=== PATIENT | female | born 1940 | race Caucasian/White ===

== ENCOUNTER 2016-12-07 13:02 | Day surgery (SDC) | payer MEDICARE ==
--- NOTE | 2016-12-08 11:40 | Operative Note ---
DATE OF SURGERY: 12/07/2016 PREOPERATIVE DIAGNOSIS: Urge urinary incontinence. POSTOPERATIVE DIAGNOSIS: Urge urinary incontinence. OPERATION: Cystoscopy. Anesthesia: Local. Indication: A 76-year-old female with urinary incontinence. She has a prior history of urethral sling surgery. She presents today for further investigation. PROCEDURE: Preop informed consent was obtained. Antibiotics were given. The patient was brought to the procedure room at [facility], placed in frog leg position with genitalia prepped and draped sterilely. Flexible cystoscopy was performed. The urethra appears unremarkable. The bladder was entered and urine in the bladder appears remarkably cloudy and it was very difficult to visualize the bladder itself. The bladder was then irrigated out several times with sterile water and some of that urine was initially sent for culture and cytology via the cystoscope. Once the bladder had been cleared out sufficiently, I was able to examine the mucosa. I did not see any evidence of tumor, foreign body, or abnormality; however, both ureteral orifices were visualized and unremarkable in appearance and location. The scope was then retroflexed. No further abnormality was seen at the bladder neck and the scope was then withdrawn. The patient tolerated this quite well. PLAN: We will follow and review the urine culture and cytology results sent today and she will come for discussion in 1-2 [facility]. We will need to move ahead with further treatment based on the results of culture and cytology. Valeriy Roberto M.D. CC: Dr. Zari BRICENO
== END 2016-12-07 14:00 | disposition home or self-care (01) ==
LOC: HOP 13:02
PROVIDERS: ATTEND Urology
DX: N32.81 Overactive bladder (principal)

== ENCOUNTER 2019-01-28 07:04 | Emergency (ER) | payer MEDICARE ==
[2019-01-28] MEDS ORDERED: SODIUM CHLORIDE 0.9% 500 ML IV ONE (07:26)
--- NOTE | 2019-01-28 07:32 | Emergency Department Record ---
History of Present Illness - General Chief Complaint: Abdominal Pain Stated Complaint: ABD PAIN Time Seen by Provider: 01/28/19 07:23 Source: Patient, RN notes reviewed Mode of Arrival: Wheelchair - History of Present Illness Initial Comments: pain intermittent for 2 weeks and pain is located in the bilateral lower abdominal area and nausea and no vomiting and no blood in stool or urine and PSH appendectomy GB remova and total hysterectomy. PMH atrial fibrillation and on coumadin. Primary Dr Shea. Complaint: Abdominal pain Onset/Timin -: Week(s) Location: LLQ, RLQ Radiation: None Migration to: No migration Severity: Moderate Severity scale (1-10): 8 Quality: Cramping, Sharp, Stabbing Consistency: Constant Improves With: Nothing Worsens With: Nothing Associated Symptoms: Denies other symptoms - Related Data Patient : No Allergies Allergy/AdvReac Type Severity Reaction Status Date / Time apixaban [From Eliquis] Allergy Intermediate RASH Unverified 01/10/19 13:39 Travel Screening - Travel/Exposure Within Last 30 Days Have you traveled within the last 30 days?: No Review of Systems Reviewed: No additional complaints except as noted below Constitutional: Reports: As per HPI. Denies: Chills, Fever, Malaise, Night sw eats, Weakness, Weight change Eyes: Reports: As per HPI. Denies: Eye discharge, Eye pain, Photophobia, Vision change ENT: Reports: As per HPI. Denies: Congestion, Dental pain, Ear pain, Epistaxis, Hearing loss, Throat pain Respiratory: Reports: As per HPI. Denies: Cough, Dyspnea, Hemoptysis, Stridor, Wheezes Cardiovascular: Reports: As per HPI. Denies: Arrhythmia, Chest pain, Dyspnea on exertion, Edema, Murmurs, Orthopnea, Palpitations, Paroxysmal nocturnal dyspnea, Rheumatic Fever, Syncope Endocrine: Reports: As per HPI. Denies: Fatigue, Heat or cold intolerance, Polydipsia, Polyuria Gastrointestinal: Reports: As per HPI, Abdominal pain, Nausea. Denies: Constipation, Diarrhea, Hematemesis, Hematochezia, Melena, Vomiting Genitourinary: Reports: As per HPI. Denies: Abnormal menses, Discharge, Dyspareunia, Dysuria, Frequency, Hematuria, Incontinence, Retention, Urgency Musculoskeletal: Reports: As per HPI. Denies: Arthralgia, Back pain, Gout, Joint swelling, Myalgia, Neck pain Skin: Reports: As per HPI. Denies: Bruising, Change in color, Change in hair /nails, Lesions, Pruritus, Rash Neurological: Reports: As per HPI. Denies: Abnormal gait, Confusion, Headache, Numbness, Paresthesias, Seizure, Tingling, Tremors, Vertigo, Weakness Psychiatric: Reports: As per HPI. Denies: Anxiety, Auditory hallucinations, Depression, Homicidal thoughts, Suicidal thoughts, Visual hallucinations Hematological/Lymphatic: Reports: As per HPI. Denies: Anemia, Blood Clots, Easy bleeding, Easy bruising, Swollen glands Past Medical History - SOCIAL HISTORY Smoking Status: Never smoker Alcohol Use: None Drug Use: None - RESPIRATORY Hx Respiratory Disorders: No - CARDIOVASCULAR Hx Cardio Disorders: Yes Hx Irregular Heartbeat: Yes (afib) - NEURO Hx Neuro Disorders: No - GI Hx GI Disorders: No - Hx Genitourinary Disorders: No - ENDOCRINE Hx Endocrine Disorders: Yes Hx Diabetes: Yes - MUSCULOSKELETAL Hx Musculoskeletal Disorders: No - PSYCH Hx Psych Problems: No - HEMATOLOGY/ONCOLOGY Hx Hematology/Oncology Disorders: No Family Medical History Any Significant Family History?: No Physical Exam - General General Appearance: Alert, Oriented x3, Cooperative, No acute distress - Head Head exam: Normal inspection - Eye Eye exam: Normal appearance, PERRL Pupils: Normal accommodation - ENT ENT exam: Normal exam, Mucous membranes moist, Normal external ear exam, Normal orophraynx, TM's normal bilaterally Ear exam: Normal external inspection. negative: External canal tenderness Nasal Exam: Normal inspection. negative: Discharge, Sinus tenderness Mouth exam: Normal external inspection, Tongue normal Teeth exam: Normal inspection. negative: Dental caries Throat exam: Normal inspection. negative: Tonsillar erythema, Tonsillar exudate - Neck Neck exam: Normal inspection, Full ROM. negative: Tenderness - Respiratory Respiratory exam: Normal lung sounds bilaterally. negative: Respiratory distress - Cardiovascular Cardiovascular Exam: Regular rate, Normal rhythm, Normal heart sounds - GI/Abdominal GI/Abdominal exam: Soft, Normal bowel sounds, Tenderness (right lower quad pain but has been on both sides on and off. ). negative: Distended, Pulsatile mass, Rebound, Rigid - Rectal Rectal exam: Deferred - exam: Deferred - Extremities Extremities exam: Normal inspection, Full ROM, Normal capillary refill. negative: Tenderness - Back Back exam: Reports: Normal inspection, Full ROM. Denies: Muscle spasm, Rash noted, Tenderness - Neurological Neurological exam: Alert, Normal gait, Oriented X3, Reflexes normal - Psychiatric Psychiatric exam: Normal affect, Normal mood - Skin Skin exam: Dry, Intact, Normal color, Warm Course Vital Signs 01/28/19 07:07 Temperature 98.5 F Pulse Rate 115 H Respiratory 20 Rate Blood Pressure 116/67 Pulse Ox 96 - Reevaluation(s) Reevaluation #1: discussed case with Dr Dueñas and will transfer to [facility] 01/28/19 10:26 Medical Decision Making - Data Complexity MDM Data: Labs Ordered and/or Reviewed (INR 7.5, urine positive for infection), X-Ray Ordered and/or Reviewed (bilateral hydronephrosis,with bladder thickening and inflamation, left renal artery stenosis 60-70% with a chronic dissection, diverticulosi) - Lab Data Result diagrams: 01/28/19 07:20 01/28/19 07:20 Disposition Clinical Impression: Cystitis, Renal artery stenosis, Renal artery dissection, Coagulopathy Hydronephrosis Qualifiers: Hydronephrosis type: unspecified Qualified Code(s): N13.30 - Unspecified hydronephrosis Abdominal pain Qualifiers: Abdominal location: left lower quadrant Qualified Code(s): R10.32 - Left lower quadrant pain Disposition: Acute Care Hospital Transfer Condition: (2) Stable Forms: Patient Portal Access Time of Disposition: 10:27 Quality - Quality Measures Quality Measures: N/A - Blood Pressure Screening Does Patient Have Any of the Following: No, Active Dx of HTN Blood Pressure Classification: Normal BP Reading Systolic Measurement: 116 Diastolic Measurement: 67 Screening for High Blood Pressure: Patient Exclusion, Hx of HTN [[id number]]
[2019-01-28 07:40] LABS: ABSOLUTE NEUTROPHIL COUNT 10.03; HEMATOCRIT 41.9 % (35.0-47.0); HEMOGLOBIN 13.4 gm/dl (11.6-16.0); MEAN CELL VOLUME 89.7 fl (81-97); MEAN CORPUSCULAR HEMOGLOBIN 28.7 pg (27-33); MEAN PLATELET VOLUME 10.5 fl (7.4-10.4); PLATELET COUNT 510 K/uL (130-400); RED BLOOD COUNT 4.67 M/uL (3.80-5.40); RED CELL DISTRIBUTION WIDTH 13.6 % (11.5-14.5); WHITE BLOOD COUNT W/O DIFF 12.3 K/uL (4.2-12.2)
[2019-01-28 07:52] LABS: BLOOD UREA NITROGEN 15 mg/dL (8-23); CREATININE 0.9 mg/dL (0.5-0.9); EST GLOMERULAR FILTRATION RATE > 60 mL/min
[2019-01-28 07:53] LABS: LIPASE 32 U/L (13-60); TOTAL PROTEIN 7.3 g/dL (6.6-8.7)
[2019-01-28 07:57] LABS: ALBUMIN 3.5 g/dL (4.0-5.0); ALKALINE PHOSPHATASE 90 U/L (35-104); ALT/SGPT 12 U/L (<33); AST/SGOT 11 U/L (10.0-35.0)
[2019-01-28 07:58] LABS: BILIRUBIN,DIRECT < 0.2 mg/dL (0-0.3)
[2019-01-28 08:30] LABS: INR 7.5; PROTHROMBIN TIME (PATIENT) 70.2 SECONDS (9.5-12.1)
[2019-01-28 08:53] LABS: URINE APPEARANCE CLEAR; URINE BILIRUBIN NEGATIVE (NEGATIVE); URINE BLOOD MODERATE (NEGATIVE); URINE COLOR YELLOW; URINE KETONE 15 mg/dL (NEGATIVE); URINE LEUKOCYTE ESTERASE MODERATE (NEGATIVE); URINE NITRITE POSITIVE (NEGATIVE); URINE UROBILINOGEN 0.2 E.U./dL (0.20 - 1.00)
[2019-01-28] MEDS ORDERED: CEFTRIAXONE SODIUM 2 GM in 0.9 % SODIUM CHLORIDE 100ML 100 ML IVPB ONE (10:14)
[2019-01-28] MEDS ORDERED: 0.9 % SODIUM CHLORIDE 1000ML 1,000 ML IV ONE (10:47)
[2019-01-28] MEDS ORDERED: DILTIAZEM 25MG/5ML VIAL IV ONE (10:47)
--- NOTE | 2019-01-29 22:54 | CT ANGIOGRAM REPORT ---
EXAM: CT ANGIOGRAM ABDOMEN/PELVIS CTA HISTORY: ABDOMINAL PAIN. POSSIBLE MESENTERIC ISCHEMIA. TECHNIQUE: Routine CT angiogram of the abdomen and pelvis is performed with 90 mL of Omnipaque-350 utilized. Maximum-intensity projection reformatted images are generated in the sagittal and coronal planes. 3D volume-rendered images are also obtained. COMPARISON: None. FINDINGS: Opacification of the systemic arteries is satisfactory for interpretation. There is mild diffuse atherosclerosis of the abdominal aorta and iliac arteries without associated aneurysmal dilatation, dissection, nor high-grade stenosis. Aortic diameters are as follows: Distal descendin.2 cm. Hiatus: 2.2 cm. Juxtarenal: 1.8 cm. Mid infrarenal: 1.5 cm. Distal infrarenal: 1.3 cm Celiac artery: Minor plaque at its origin causes less than 20% stenosis. Otherwise, widely patent, normal in caliber and without dissection. Its proximal branches are patent. There is mild to moderate atherosclerotic calcification of the mid to distal splenic artery. Superior mesenteric artery: There is atherosclerotic calcification along the right margin of its origin causing approximately 20-30% stenosis. Otherwise, widely patent, as are its proximal branches. Inferior mesenteric artery: Patent. Right renal artery: There is a single right renal artery. There is calcified plaque along the anterior margin of the proximal right renal artery causing mild segmental stenosis. No high-grade stenosis nor thrombosis. Left renal artery: There is a single left renal artery. There is calcified plaque at its origin causing approximately 60-70% stenosis. A short segment of dissection in this region is possible, likely chronic. Atherosclerosis of the common iliac arteries causes mild stenosis. The external iliac arteries are widely patent, as are the common femoral arteries. The common femoral artery bifurcations are patent. There is mild atherosclerosis of the proximal aspects of the internal iliac arteries. There are patchy opacities within the lung bases consistent with atelectasis or less likely infiltrate. The heart is mildly enlarged. No pleural or pericardial effusion. Evaluation of the solid viscera is limited due to imaging during early phase of enhancement. With this in mind, no suspicious focal abnormality is demonstrated within the liver, spleen, pancreas, nor adrenal glands. A calcified granuloma is noted within the lateral aspect of the liver dome. The gallbladder is surgically absent. No biliary ductal dilatation is seen. The renal cortices enhance symmetrically. No definite renal mass nor calculus. There is moderate hydroureteronephrosis bilaterally down to the level of the vesicoureteral junctions. There is associated moderate urinary bladder wall thickening and mild perivesical fat stranding. No definite focal bladder mass nor definite focal obstructing ureteral mass/calculus. No intraabdominal nor retroperitoneal lymphadenopathy. The uterus is surgically absent. No pelvic mass or adenopathy. No gross bowel dilatation nor bowel wall thickening. By history, the appendix is surgically absent. There is diverticulosis of the left colon without evidence of acute diverticulitis. The wall of the distal rectum appears mildly prominent in thickness, likely due to incomplete distention. No extraluminal air nor ascites. There are two fat-filled ventral wall hernias. That in the midline abdomen above the level of the umbilicus measures 5.7 x 2.5 cm. The other is located in the left periumbilical region and measures 6.5 x 5 cm. These appear uncomplicated. No lytic or blastic bone lesion. IMPRESSION: 1. MILD DIFFUSE ATHEROSCLEROSIS. THERE IS NO EVIDENCE OF ANEURYSM NOR HIGH- GRADE STENOSIS INVOLVING THE ABDOMINAL AORTA NOR ILIAC ARTERIES. 2. NO EVIDENCE OF CLINICALLY SIGNIFICANT STENOSIS INVOLVING THE MESENTERIC ARTERIES NOR CELIAC ARTERIES. 3. SHORT SEGMENT OF STENOSIS INVOLVING THE PROXIMAL LEFT RENAL ARTERY MEASURING APPROXIMATELY 60-70%. A SHORT SECTION OF CHRONIC DISSECTION AT THIS LEVEL IS POSSIBLE. 4. MODERATE WALL THICKENING OF THE URINARY BLADDER WITH MILD TO MODERATE PERIVESICAL FAT STRANDING. THIS IS SUSPICIOUS FOR CYSTITIS. THERE IS ASSOCIATED MODERATE TO SEVERE BILATERAL HYDROURETERONEPHROSIS DOWN TO THE LEVEL OF THE VESICOURETERAL JUNCTIONS. 5. COLONIC DIVERTICULOSIS WITHOUT EVIDENCE OF DIVERTICULITIS. 6. UNCOMPLICATED VENTRAL WALL HERNIAS. 7. STATUS POST CHOLECYSTECTOMY, APPENDECTOMY, AND HYSTERECTOMY. JOB NUMBER: [id number] [facility]
== END 2019-01-28 13:08 | disposition short-term general hospital (02) ==
LOC: ER 07:04
DX: I77.73 Dissection of renal artery (principal); I70.1 Atherosclerosis of renal artery; D68.9 Coagulation defect, unspecified; R00.0 Tachycardia, unspecified; K57.90 Diverticulosis of intestine, part unspecified, without perforation or abscess without bleeding; N30.01 Acute cystitis with hematuria; R10.32 Left lower quadrant pain; N13.30 Unspecified hydronephrosis; R11.0 Nausea; I10 Essential (primary) hypertension; I48.91 Unspecified atrial fibrillation
CPT/HCPCS: 74174; 80048; 80076; 81003; 83690; 85027; 85610; 93005; 93010; 96374; 96375; 99285

== ENCOUNTER 2019-09-19 10:37 | Emergency (ER) | payer MEDICARE ==
[2019-09-19] MEDS ORDERED: 0.9 % SODIUM CHLORIDE 1,000 ML BAG IV ONE (10:42)
--- NOTE | 2019-09-19 10:51 | Emergency Department Record ---
History of Present Illness - General Chief Complaint: Fall Injury Stated Complaint: FALL Time Seen by Provider: 09/19/19 10:40 Source: Patient, EMS Mode of Arrival: EMS - History of Present Illness Initial Comments: patient fell at the local school with hitting her low back and also hit her head and noLOC and no vomiting or headache but she is on coumadin for atrial fib. No chest pain or thoracic back pain or c spine pain or abdominal pain. She has severe lumbar spine pain and her pelvis hurts to rock her pelvis, She is moving her legs and arms without pain.PMH neurogenic bladder and has a pardo snf Urologist Dr Stout. DM type two 2, atrial fib, MD Complaint: Fall Onset/Timin -: Minutes(s) Fall From: Standing When Fall Occurred: Just prior to arrival Fall Witnessed: Yes, by bystander Loss of Consciousness: None Prolonged Down Time?: No Symptoms Prior to Fall: None Location: Head, Back Severity scale (1-10): >10 Quality: Aching Associated Symptoms: Denies - Josh Coma Scale Eye Response: (4) Open spontaneously Motor Response: (6) Obeys commands Verbal Response: (5) Oriented Citra Total: 15 - Related Data Allergies Allergy/AdvReac Type Severity Reaction Status Date / Time No Known Drug Allergies Allergy Verified 09/19/19 11:13 Travel/Exposure Screening - Travel/Exposure Within Last 30 Days Have you traveled within the last 30 days?: No Review of Systems Reviewed: No additional complaints except as noted below Constitutional: Reports: As per HPI. Denies: Chills, Fever, Malaise, Night sweats, Weakness, Weight change Eyes: Reports: As per HPI. Denies: Eye discharge, Eye pain, Photophobia, Vision change ENT: Reports: As per HPI. Denies: Congestion, Dental pain, Ear pain, Epistaxis, Hearing loss, Throat pain Respiratory: Reports: As per HPI. Denies: Cough, Dyspnea, Hemoptysis, Stridor, Wheezes Cardiovascular: Reports: As per HPI. Denies: Arrhythmia, Chest pain, Dyspnea on exertion, Edema, Murmurs, Orthopnea, Palpitations, Paroxysmal nocturnal dyspnea, Rheumatic Fever, Syncope Endocrine: Reports: As per HPI. Denies: Fatigue, Heat or cold intolerance, Polydipsia, Polyuria Gastrointestinal: Reports: As per HPI. Denies: Abdominal pain, Constipation, Diarrhea, Hematemesis, Hematochezia, Melena, Nausea, Vomiting Genitourinary: Reports: As per HPI. Denies: Abnormal menses, Discharge, Dyspareunia, Dysuria, Frequency, Hematuria, Incontinence, Retention, Urgency Musculoskeletal: Reports: As per HPI, Back pain. Denies: Arthralgia, Gout, Joint swelling, Myalgia, Neck pain Skin: Reports: As per HPI. Denies: Bruising, Change in color, Change in hair/nails, Lesions, Pruritus, Rash Neurological: Reports: As per HPI. Denies: Abnormal gait, Confusion, Headache, Numbness, Paresthesias, Seizure, Tingling, Tremors, Vertigo, Weakness Psychiatric: Reports: As per HPI. Denies: Anxiety, Auditory hallucinations, Depression, Homicidal thoughts, Suicidal thoughts, Visual hallucinations Hematological/Lymphatic: Reports: As per HPI. Denies: Anemia, Blood Clots, Easy bleeding, Easy bruising, Swollen glands Past Medical History - SOCIAL HISTORY Smoking Status: Never smoker Alcohol Use: None Drug Use: None - RESPIRATORY Hx Respiratory Disorders: No - CARDIOVASCULAR Hx Cardio Disorders: Yes Hx Irregular Heartbeat: Yes (afib) - NEURO Hx Neuro Disorders: No - GI Hx GI Disorders: No - Hx Genitourinary Disorders: No - ENDOCRINE Hx Endocrine Disorders: Yes Hx Diabetes: Yes - MUSCULOSKELETAL Hx Musculoskeletal Disorders: No - PSYCH Hx Psych Problems: No - HEMATOLOGY/ONCOLOGY Hx Hematology/Oncology Disorders: No Family Medical History Any Significant Family History?: No Physical Exam - General General Appearance: Alert, Oriented x3, Cooperative, No acute distress - Head Head exam: Normal inspection - Eye Eye exam: Normal appearance, PERRL Pupils: Normal accommodation - ENT ENT exam: Normal exam, Mucous membranes moist, Normal external ear exam, Normal orophraynx, TM's normal bilaterally Ear exam: Normal external inspection. negative: External canal tenderness Nasal Exam: Normal inspection. negative: Discharge, Sinus tenderness Mouth exam: Normal external inspection, Tongue normal Teeth exam: Normal inspection. negative: Dental caries Throat exam: Normal inspection. negative: Tonsillar erythema, Tonsillar exudate - Neck Neck exam: Normal inspection, Full ROM. negative: Tenderness - Respiratory Respiratory exam: Normal lung sounds bilaterally. negative: Respiratory distress - Cardiovascular Cardiovascular Exam: Regular rate, Normal rhythm, Normal heart sounds - GI/Abdominal GI/Abdominal exam: Soft, Normal bowel sounds, Other (pain rocking pelvis and palpating the lumbar spine). negative: Tenderness - Rectal Rectal exam: Deferred - exam: Deferred - Extremities Extremities exam: Normal inspection, Full ROM, Normal capillary refill. negative: Tenderness - Back Back exam: Reports: Normal inspection, Full ROM. Denies: Muscle spasm, Rash noted, Tenderness - Neurological Neurological exam: Alert, Normal gait, Oriented X3, Reflexes normal - Psychiatric Psychiatric exam: Normal affect, Normal mood - Skin Skin exam: Dry, Intact, Normal color, Warm Course - Reevaluation(s) Reevaluation #1: Discussed case with Dr Ra julio and Dr. Brito and Shanon [facility] and they requested vit K to reverse coumadin 09/19/19 12:36 09/19/19 13:01 Reevaluation #2: patient had an episode where she became unresponsive and not breathing for about 3 min and pulse ox remained in the 90% and she was bradycardic 46 and she had no siezure activity the was in the room and she coughed and became unresponsive and she wake up and vomited and stated she had back pain. Patient seemed sedated so gave narcan 0.4 mg and she became much more responsive and more painful. Her vitamin K was just started and that was stopped. IV normal saline fluid bolus 500 ml given and her BP was good through out the episode. 09/19/19 13:38 Reevaluation #3: reordered CT head and CTA of chest and abd 09/19/19 13:47 Reevaluation #4: patient went bradycardic and maintained her BP through the episode and now is talking but nauseated after the narcan given and she has much more back pain. 09/19/19 13:50 Reevaluation #5: IV contrast went SQ in the right anticubital area and they were unable to do the CTA and because her respiratory status was good canciled the CTA and just did a CT chest and ABD and if she needs a CTA that could be done at [facility] and discussed the case with DR Brito at [facility] ED. Repeat CT of head negative, CT of chest and abd pending 09/19/19 14:53 Medical Decision Making - Data Complexity MDM Data: Labs Ordered and/or Reviewed (inr 2.7, hg 12.8, bun 20, 0.8), X-Ray Ordered and/or Reviewed (CT head neg adn Cspine neg T12 compression fracture with extension into the right pedicle and right Lamina) - Lab Data Result diagrams: 09/19/19 10:56 09/19/19 10:56 Disposition Clinical Impression: Lumbar pain, Pelvic pain Fracture of thoracic spine Qualifiers: Encounter type: initial encounter Thoracic vertebra fracture level: T12 Fract ure type: closed Fracture morphology: other fracture Qualified Code(s): S22.088A - Other fracture of T11-T12 vertebra, initial encounter for closed fracture Syncope Qualifiers: Syncope type: vasovagal syncope Qualified Code(s): R55 - Syncope and collapse Disposition: Acute Care Hospital Transfer Condition: (2) Stable Forms: Patient Portal Access Time of Disposition: 13:13 Quality - Quality Measures Quality Measures: N/A - Blood Pressure Screening Does Patient Have Any of the Following: No, Active Dx of HTN Blood Pressure Classification: Hypertensive Reading Systolic Measurement: 140 Diastolic Measurement: 72 Screening for High Blood Pressure: Patient Exclusion, Hx of HTN [G9744]
[2019-09-19 11:11] LABS: ABSOLUTE NEUTROPHIL COUNT 5.74; BASO % 0.4 % (0-6); EOS % 3.7 % (0-6); GRAN % 73.2 % (47-80); HEMATOCRIT 41.2 % (35.0-47.0); HEMOGLOBIN 12.8 gm/dl (11.6-16.0); LYMPH % 13.8 % (16-45); MEAN CORPUSCULAR HEMOGLOBIN 27.9 pg (27-33); MEAN CORPUSCULAR HGB CONC 31.1 g/dl (32-36); MEAN PLATELET VOLUME 11.1 fl (7.4-10.4); MONO % 8.9 % (0-9); PLATELET COUNT 251 K/uL (130-400); RED BLOOD COUNT 4.58 M/uL (3.80-5.40); WHITE BLOOD COUNT W/O DIFF 7.8 K/uL (4.2-12.2)
[2019-09-19 11:20] LABS: BLOOD UREA NITROGEN 20 mg/dL (8-23); CREATININE 0.8 mg/dL (0.5-0.9); EST GLOMERULAR FILTRATION RATE > 60 mL/min; LIPASE 22 U/L (13-60)
[2019-09-19 11:22] LABS: GLUCOSE,RANDOM 239 mg/dL (74-109); INR 2.7; PARTIAL THROMBOPLASTIN TIME 36.8 SECONDS (24.5-39.1); PROTHROMBIN TIME (PATIENT) 26.9 SECONDS (9.5-12.1)
[2019-09-19] MEDS ORDERED: ONDANSETRON HCL IV 4 MG/2 ML VIAL IVP ONE ×2 (11:32→13:48)
[2019-09-19] MEDS ORDERED: MORPHINE SULFATE 5 MG/ML VIAL IVP ONE (11:32)
--- NOTE | 2019-09-19 11:52 | CT SCAN REPORT ---
EXAMINATION: CT Lumbar Spine without Contrast EXAM DATE: 09/19/2019 11:49 AM TECHNIQUE: Standard protocol CT images were performed of the lumbar spine without contrast. Sagittal and coronal 2-D images were reconstructed. INDICATION: fall COMPARISON: None ENCOUNTER: Not applicable FINDINGS: There is an acute compression fracture with fracture line visualized involving the superior endplate of T12. The fracture line extends from the anterior superior aspect of T12 to the midportion of the p osterior aspect of T12 on the right with involvement of the right pedicle and right lamina as well. T here is 25% loss of vertebral body height centrally. No significant bony retropulsion. 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 Mild paravertebral edema noted at T12 superiorly. Mild bilateral foraminal narrowing at T11-12. T12-L 1: No canal stenosis or foraminal narrowing. L1-2: No canal stenosis. Broad-based disc bulge. No significant foraminal narrowing. L2-3: There is a broad-based disc bulge. Mild canal stenosis. Facet arthritic changes are present. No significant foraminal narrowing. L3-4: There is a broad-based disc bulge. Moderate canal stenosis. Moderate bilateral foraminal narrow ing. L4-5: There is a broad-based disc bulge with mild canal stenosis. Left central protrusion is present. Severe left and moderate right foraminal narrowing. L5-S1: There is a broad-based disc bulge without canal stenosis. Facet arthritic changes are present. Mild bilateral foraminal narrowing. Limited evaluation of the intra-abdominal structures are unremarkable. IMPRESSION: Multilevel degenerative changes as detailed above. Acute compression fracture finding with fracture line visualized involving the superior endplate of T 12. The fracture line involving the superior endplate of T12 anteriorly extends posteriorly to involv e the lamina and pedicle on the right. No significant displacement of the fracture findings. Dictated by: Jonathan Tillman MD on 09/19/2019 11:42 AM. .
--- NOTE | 2019-09-19 11:58 | CT SCAN REPORT ---
EXAMINATION: HEAD/C SPINE WO CONTRAST EXAM DATE: 09/19/2019 11:45 AM TECHNIQUE: Axial 2.5 mm images through the brain and cervical spine was obtained without contrast.. Multiplanar reformats generated.. INDICATION: fall from standing position COMPARISON: None ENCOUNTER: Initial FINDINGS: Mild global cortical volume loss. No acute intracranial hemorrhage. No hydrocephalus or extra-axial h emorrhage. Mild chronic small vessel ischemic changes in a periventricular distribution. Remote lacun ar infarct findings in the bilateral basal ganglia. Osseous calvarium is intact. The visualized paran oscar sinuses and mastoid air cells are clear. The dens interval and craniocervical junction are unremarkable. Vertebral body heights are maintained . There is multilevel loss of disc height. No jumped or perched facets. Spinous processes are intact. The lateral masses are symmetric. Lung apices are unremarkable. 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 There are solid and cystic components identified particularly in the thyroid i sthmus. Recommend thyroid ultrasound for further characterization. IMPRESSION: 1. No acute intracranial abnormality. Chronic changes as above. 2. Degenerative changes in the cervical spine. No acute cervical spine fracture. Dictated by: Jonathan Tillman MD on 09/19/2019 11:51 AM. .
--- NOTE | 2019-09-19 12:22 | CT SCAN REPORT ---
EXAMINATION: CT of the Pelvis without Intravenous Contrast. EXAM DATE: 09/19/2019 11:43 AM TECHNIQUE: A standard CT pelvis protocol was performed without intravenous contrast. Sagittal and cor onal images were reconstructed. INDICATION: fall from standing position COMPARISON: None ENCOUNTER: Not applicable FINDINGS: L5-S1 ankylosis. Sacroiliac joints are patent, mild osteoarthritic changes, degenerative intra-articu lar gas bilaterally. Femoroacetabular joint spaces are preserved. Unremarkable suprapubic catheter positioning. Fat-containing ventral hernias. 3-D imagin-D VR reconstructions are submitted for review, no discordant findings. IMPRESSION: No acute fracture demonstrated Degenerative findings Dictated by: Jose Artis MD on 09/19/2019 12:17 PM. .
[2019-09-19] MEDS ORDERED: PHYTONADIONE 10 MG in 0.9 % SODIUM CHLORIDE 100ML 100 ML IVPB ONE (12:59)
[2019-09-19] MEDS ORDERED: ACETAMINOPHEN 1,000 MG/100 ML BTL IVPB ONE (13:35)
[2019-09-19] MEDS ORDERED: NALOXONE 0.4 MG/1 ML VIAL IVP ONE (13:46)
[2019-09-19] MEDS ORDERED: 0.9 % SODIUM CHLORIDE 1000ML 1,000 ML IV SCH (14:00)
--- NOTE | 2019-09-19 14:08 | CT SCAN REPORT ---
EXAMINATION: CT Head without IV Contrast EXAM DATE: 09/19/2019 2:02 PM TECHNIQUE: Standard protocol CT images of the head were obtained without intravenous contrast. Herrera l and sagittal reconstructed images were created. INDICATION: syncope COMPARISON: 09/19/2019 HAND DOMINANCE: Unknown. ENCOUNTER: Not applicable FINDINGS: 1. There is no intracranial mass, midline shift, extraaxial fluid collection or hemorrhage. 2. Stable mild global cortical volume loss. No acute loss of sommer-white differentiation. Mild chroni c small vessel ischemic changes. Ex vacuo dilatation of the ventricular system. 3. No acute loss of sommer-white differentiation. Stable intracranial atheromatous changes. 4. There is no fracture. 5. The visualized aspects of the orbits, paranasal sinuses, and mastoid air cells are normal. IMPRESSION: No acute intracranial abnormality. Chronic changes as above. Dictated by: Jonathan Tillman MD on 09/19/2019 2:03 PM. .
--- NOTE | 2019-09-19 15:16 | CT SCAN REPORT ---
EXAMINATION:: CT Chest and Abdomen without Contrast EXAM DATE: 09/19/2019 2:44 PM TECHNIQUE:: Without contrast spiral CT images were done from lung apices through the iliac crests. C oronal and sagittal 2-D reconstructions were made from source images. INDICATION: BACK PAIN COMPARISON: None. FINDINGS: Evaluation of solid organs is degraded due to lack of intravenous contrast. Images are als o degraded by artifact from the patient's arms. Chest: The top of the lung apices are excluded from the area imaged. There is a 1.5 cm irregular nodule in t he posterior costophrenic angle of the right lung. The visualized lungs are otherwise unremarkable. There is a 2.1 x 1.6 cm precarinal lymph node. No other definite pathologically enlarged nodes on thi s noncontrast exam. No pleural effusions. T12 vertebral fracture is noted, as seen on the CT lumbar spine of the same day. Abdomen: A tiny intrarenal stone is seen on the right. No hydronephrosis. The liver, spleen, pancreas, and adr enals are normal. No free fluid or free air. Suboptimal evaluation of bowel due to nondistention and lack of oral contrast. No bowel dilation. There is a small hiatal hernia. Fat-containing ventral her nias are also noted. IMPRESSION: 1. Indeterminant right lung nodule. The Fleischner Society recommendations for a single nodule measur ing greater than 8 mm are: Follow up CT at 3 months, PET/CT, or tissue sampling. 2. Enlarged mediastinal lymph node. 3. Tiny right intrarenal stone. 4. Hiatal hernia and fat-containing ventral hernias. 5. T12 fracture as seen on recent lumbar spine CT. Dictated by: Tyrel Shen MD on 09/19/2019 3:00 PM. .
== END 2019-09-19 15:15 | disposition short-term general hospital (02) ==
LOC: ER 10:37
DX: S22.088A Other fracture of T11-T12 vertebra, initial encounter for closed fracture (principal); S00.81XA Abrasion of other part of head, initial encounter; R55 Syncope and collapse; R10.2 Pelvic and perineal pain; R07.89 Other chest pain; R91.1 Solitary pulmonary nodule; R11.2 Nausea with vomiting, unspecified; E11.9 Type 2 diabetes mellitus without complications; I48.91 Unspecified atrial fibrillation; I10 Essential (primary) hypertension; Z79.01 Long term (current) use of anticoagulants; Z79.84 Long term (current) use of oral hypoglycemic drugs; Y92.219 Unspecified school as the place of occurrence of the external cause
CPT/HCPCS: 99285 ×2; 96376; 96374; 96375; 96361; 83690; 85025; 85730; 85610; 80048; 84484; 74150; 72125; 71250; 70450; 72131; 72192; 93005; J2405; 93010; J2310; J7030